=== PATIENT | female | born 1955 | race Caucasian/White ===

== ENCOUNTER 2019-05-06 11:08 | Emergency (ER) | payer MEDICARE ==
--- NOTE | 2019-05-06 11:44 | ER Document Report ---
ED Medical Screen (RME) - General Chief Complaint: High Blood Pressure Stated Complaint: BLOOD PRESSURE ISSUES Time Seen by Provider: 05/06/19 11:35 Notes: HPI: 64-year-old female with history of high blood pressure presenting for high blood pressure. States she has a mild headache. Patient states that she has been working through her physician in [place] to try and manage her blood pressure over the last 2 months. They have made several changes in her medication dosing. Patient saw a primary care provider locally today and her blood pressure systolic was greater than 200 and they referred her over to the emergency department. She denies chest pain denies shortness of breath. Denies weakness numbness tingling in the extremities. States she last had blood work done in October 2018. I have greeted and performed a rapid initial assessment of this patient. A comprehensive ED assessment and evaluation of the patient, analysis of test results and completion of the medical decision making process will be conducted by additional ED providers PHYSICAL EXAMINATION: GENERAL: Well-appearing, well-nourished and in no acute distress. HEAD: Atraumatic, normocephalic. EYES: sclera anicteric, conjunctiva are normal. ENT: Moist mucous membranes. NECK: Normal range of motion, no JVD LUNGS: Normal work of breathing, clear to auscultation HEART: 2+ radial pulses bilaterally, regular rate and rhythm ABD: limited by positioning for exam in triage. EXTREMITIES: no pitting or edema. No cyanosis. NEUROLOGICAL: No focal neurological deficits. Moves all extremities spontaneously and on command. PSYCH: Normal mood, normal affect. SKIN: Warm, Dry, normal turgor, no rashes or lesions noted. TRAVEL OUTSIDE OF THE [place] IN LAST 30 DAYS: No - Related Data Allergies/Adverse Reactions: No Known Allergies Allergy (Unverified 05/06/19 11:33) Home Medications: Metoprolol, Acebutolol Physical Exam - Vital signs Vitals: Temp Pulse Resp BP Pulse Ox 97.9 F 68 16 216/93 H 100 05/06/19 11:25 05/06/19 11:25 05/06/19 11:05/06/19 11:05/06/19 11:25 Course - Vital Signs Vital signs: Temp Pulse Resp BP Pulse Ox 97.9 F 68 16 216/93 H 100 05/06/19 11:25 05/06/19 11:25 05/06/19 11:25 05/06/19 11:25 05/06/19 11:25
[2019-05-06 12:24] LABS: ABSOLUTE BASOPHILS # (AUTO) 0.1 10^3/uL (0.0-0.2); ABSOLUTE EOSINOPHILS # (AUTO) 0.2 10^3/uL (0.0-0.6); ABSOLUTE LYMPHOCYTES (AUTO) 1.8 10^3/uL (0.5-4.7); ABSOLUTE MONOCYTES (AUTO) 0.7 10^3/uL (0.1-1.4); ABSOLUTE NEUT (AUTO) 6.7 10^3/uL (1.7-8.2); BASOPHILS % (AUTO) 0.9 % (0-2); EOSINOPHILS % (AUTO) 1.7 % (0-6); HEMATOCRIT 43.4 % (36.0-47.0); LYMPHOCYTES % (AUTO) 18.9 % (13-45); MEAN CORPUSCULAR HEMOGLOBIN 31.9 pg (27.0-33.4); MEAN CORPUSCULAR HGB CONC 34.7 g/dL (32.0-36.0); MEAN CORPUSCULAR VOLUME 92 fl (80-97); MONOCYTES % (AUTO) 7.3 % (3-13); PLATELET COUNT 216 10^3/uL (150-450); RED BLOOD COUNT 4.71 10^6/uL (3.72-5.28); RED CELL DISTRIBUTION WIDTH 12.4 % (11.5-14.0); SEGMENTED NEUTROPHILS % (AUTO) 71.2 % (42-78); TOTAL CELLS COUNTED % (AUTO) 100 %; WHITE BLOOD COUNT 9.4 10^3/uL (4.0-10.5)
--- NOTE | 2019-05-06 12:24 | RADIOLOGY REPORT (SQ) ---
EXAM DESCRIPTION: CHEST 2 VIEWS COMPLETED DATE/TIME: 05/06/2019 12:04 pm REASON FOR STUDY: High blood pressure COMPARISON: None. EXAM PARAMETERS: NUMBER OF VIEWS: two views TECHNIQUE: Digital Frontal and Lateral radiographic views of the chest acquired. RADIATION DOSE: NA LIMITATIONS: none FINDINGS: LUNGS AND PLEURA: No opacities, masses or pneumothorax. No pleural effusion. MEDIASTINUM AND HILAR STRUCTURES: No masses or contour abnormalities. HEART AND VASCULAR STRUCTURES: Heart normal size. No evidence for failure. BONES: No acute findings. HARDWARE: None in the chest. OTHER: No other significant finding. IMPRESSION: No evidence of acute cardiopulmonary process. TECHNICAL DOCUMENTATION: JOB ID: [id number] [employer] ([employer])- All Rights Reserved Reading location - IP/workstation name: [email or web address]
[2019-05-06 12:25] LABS: ALBUMIN 4.7 g/dL (3.5-5.0); ALKALINE PHOSPHATASE 84 U/L (38-126); ANION GAP 11 (5-19); ASPARTATE AMINO TRANSFERASE 32 U/L (14-36); BILIRUBIN,DIRECT 0.3 mg/dL (0.0-0.4); BILIRUBIN,TOTAL 0.7 mg/dL (0.2-1.3); BLOOD UREA NITROGEN 15 mg/dL (7-20); CALCIUM 10.3 mg/dL (8.4-10.2); CARBON DIOXIDE 28 mmol/L (22-30); CHLORIDE 101 mmol/L (98-107); GLUCOSE 99 mg/dL (75-110); POTASSIUM 4.3 mmol/L (3.6-5.0); TOTAL PROTEIN 7.9 g/dL (6.3-8.2)
[2019-05-06] MEDS ORDERED: MECLIZINE HCL 25 MG TABLET PO ONE (13:04)
[2019-05-06] MEDS ORDERED: CHLORTHALIDONE 25 MG TABLET PO ONE (13:33)
[2019-05-06] MEDS ORDERED: AMLODIPINE BESYLATE 5 MG TABLET PO ONE (13:34)
[2019-05-06 14:01] LABS: APPEARANCE,URINE CLEAR; BILIRUBIN,URINE NEGATIVE (NEGATIVE); COLOR,URINE STRAW; GLUCOSE, URINE NEGATIVE (NEGATIVE); KETONES,URINE NEGATIVE (NEGATIVE); LEUKOCYTE ESTERASE,URINE NEGATIVE (NEGATIVE); NITRITE,URINE NEGATIVE (NEGATIVE); PROTEIN,URINE NEGATIVE (NEGATIVE); URINE SPECIFIC GRAVITY 1.005; UROBILINOGEN,URINE NEGATIVE mg/dL (<2.0)
--- NOTE | 2019-05-06 15:16 | EKG REPORT ---
SEVERITY:- NORMAL ECG - SINUS RHYTHM : Confirmed by: Renetta Rendon MD 06-May-2019 15:15:33
[2019-05-06 15:17] VITALS: BP 152/69
--- NOTE | 2019-05-06 20:14 | ER Document Report ---
Entered by CAR DO SCRIBE 05/06/19 1712 Acting as scribe for:DALTON LOPEZ MD ED General - General Chief Complaint: High Blood Pressure Stated Complaint: BLOOD PRESSURE ISSUES Time Seen by Provider: 05/06/19 11:35 Information source: Patient Notes: 64 year old female presents to the ED with hypertension that she reports she has not been able to stabilize for three months. Patient visited [facility] this morning and was sent to the ED with hypertension (200/88). Patient complains of vertigo 8 days prior that kept her in bed. Patient says that vertigo is worse with getting up quickly. Patient took Dramamine and stated that it mildly helped. Patient reports that she is visiting for the winter and is to return to her home state, [place], in August. She has been in contact with her physician in her home state who has been adjusting her medications for her blood pressure. Patient reports she has been on acebutolol 400mg daily for about 4 years. She reports back in the summer she had been on hydrochlorothiazide 25 mg daily for quite some time and her doctor stopped the medication in October 2018. She does not know why it was stopped. In March when her blood pressure started running higher, her doctor added metoprolol succinate 50 mg daily. That did not seem to help the blood pressure so she added an additional 50 mg of metoprolol succinate daily. She has continued to run elevated blood pressures. She also reports that she has felt somewhat fatigued since starting the metoprolol, and that she thinks she has been gaining some weight. TRAVEL OUTSIDE OF THE [place] IN LAST 30 DAYS: No - Related Data Allergies/Adverse Reactions: No Known Allergies Allergy (Unverified 05/06/19 11:33) Home Medications: Metoprolol, Acebutolol Past Medical History - General Information source: Patient - Social History Smoking Status: Current Every Day Smoker Cigarette use (# per day): Yes - 1/2 pack per day Chew tobacco use (# tins/day): No Smoking Education Provided: No Frequency of alcohol use: Social Drug Abuse: None Occupation: Retired Lives with: Family Family History: Reviewed & Not Pertinent Patient has suicidal ideation: No Patient has homicidal ideation: No - Past Medical History Cardiac Medical History: Reports: Hx Hypertension Past Surgical History: Reports: Hx Tonsillectomy Review of Systems - Review of Systems Constitutional: No symptoms reported EENT: See HPI, Vertigo Cardiovascular: No symptoms reported Respiratory: No symptoms reported Gastrointestinal: No symptoms reported Genitourinary: No symptoms reported Female Genitourinary: No symptoms reported Musculoskeletal: No symptoms reported Skin: No symptoms reported Hematologic/Lymphatic: No symptoms reported Neurological/Psychological: See HPI, Other - Dizziness/vertigo-like symptoms -: Yes All other systems reviewed and negative Physical Exam - Vital signs Vitals: Temp Pulse Resp BP Pulse Ox 97.9 F 68 16 216/93 H 100 05/06/19 11:25 05/06/19 11:25 05/06/19 11:25 05/06/19 11:25 05/06/19 11:25 - Notes Notes: General: Alert, appears well. HEENT: Normocephalic. Atraumatic. PERRL. Extraocular movements intact. Oropharynx clear. Kevin-hallpike test is positive. Slight lateral gaze-evoked nystagmus. Neck: Supple. Non-tender. Respiratory: No respiratory distress. Clear and equal breath sounds bilaterally. Cardiovascular: Regular rate and rhythm. Abdominal: Normal Inspection. Non-tender. No distension. Normal Bowel Sounds. Back: No gross abnormalities. Extremities: Moves all four extremities. Upper extremities: Normal inspection. Normal ROM. Lower extremities: Normal inspection. There is some trace edema to the lower extremities. Normal ROM. Neurological: Normal cognition. AAOx4. Normal speech. Psychological: Normal affect. Normal Mood. Skin: Warm. Dry. Normal color. Course - Re-evaluation Re-evalutation: 05/06/19 15:18 The patient was given meclizine 50 mg, amlodipine 5 mg, and chlorthalidone 25 mg 1:30 PM. At this time the dizziness she was feeling is considerably better and she notices that she is able to lay down on her right side now. She states previously when she would lay down at night on the right side it made her quite dizzy. Her blood pressure is now down to 152/69. I have advised her that if her blood pressure continues to fall and drops down to 130 systolic or less, she should reduce her metoprolol by half to what her previous dose had been. She will follow-up with [facility] this week for recheck, to determine what the best combination of medications might be to control her blood pressure and reduce the fatigue she has been experiencing from the double beta-juvenal dosing she is on. - Vital Signs Vital signs: Temp Pulse Resp BP Pulse Ox 98.4 F 68 13 152/69 H 100 05/06/19 15:31 05/06/19 11:25 05/06/19 15:01 05/06/19 15:01 05/06/19 15:01 - Laboratory Result Diagrams: 05/06/19 11:59 05/06/19 11:59 Laboratory results interpreted by me: 05/06/19 11:59 Calcium 10.3 H Discharge - Discharge Clinical Impression: Vertigo High blood pressure Qualifiers: Hypertension type: essential hypertension Qualified Code(s): I10 - Essential (primary) hypertension Condition: Stable Disposition: HOME, SELF-CARE Additional Instructions: Vertigo: You have been experiencing episodes of vertigo -- a whirling dizziness which may be accompanied by nausea and vomiting or staggering. Vertigo is often caused by an irritation of the inner ear, in which case it is called labyrinthitis. It can also be a symptom of a degenerating inner ear, nerve damage, or brain injury. Your physician has evaluated you to determine whether any further testing is necessary. Vertigo is often treated with dramamine or meclizine. These medications are helpful, but stronger medication may be needed if you are vomiting. Rest in bed. You should not drive or operate machinery until completely better. It may take one to three weeks for recovery. If there are new symptoms, such as decreased hearing or vision, severe headache, weakness or faintness, or confusion, call the physician. High Blood Pressure: Some simple things you can do to help are: If you have blood pressure medicine but aren't using it regularly, start taking it again. Get some aerobic exercise for at least 20 minutes on a daily basis. (See your doctor before beginning a new exercise program.) Eat a low-fat diet. Lose excess weight. Avoid salty foods and avoid adding salt to any of the foods you eat. Avoid diet pills, decongestants, "energizing" herbs, and other medicines that elevate blood pressure. If left poorly controlled, hypertension greatly enhances your risk for developing heart disease and strokes. Please don't ignore this problem. Take the Antivert as prescribed for dizziness. Start the chlorthalidone and amlodipine tomorrow. If you find that your blood pressure drops to a systolic of 130 or less, then reduce the metoprolol dose by half. Be sure to drink plenty fluids and get plenty of rest. Follow-up with your new primary care provider later this week to review your blood pressure readings and your new medications and doses. Take copies of the lab work, EKG, and chest x-ray report with you. RETURN TO THE EMERGENCY ROOM IF ANY NEW OR WORSENING SYMPTOMS. Prescriptions: Meclizine HCl [Antivert 25 mg Tablet] 25 mg PO TID PRN #30 tablet PRN Reason: Chlorthalidone [Hygroton 25 mg Tablet] 25 mg PO DAILY #30 tablet Amlodipine Besylate [Norvasc 5 mg Tablet] 5 mg PO DAILY #30 tablet Scribe Attestation: 05/06/19 20:21 I personally performed the services described in the documentation, reviewed and edited the documentation which was dictated to the scribe in my presence, and it accurately records my words and actions. I personally performed the services described in the documentation, reviewed and edited the documentation which was dictated to the scribe in my presence, and it accurately records my words and actions.
== END 2019-05-06 15:34 | disposition home or self-care (01) ==
LOC: ER 11:08
DX: I10 Essential (primary) hypertension (principal); Z79.899 Other long term (current) drug therapy; R42 Dizziness and giddiness; H55.00 Unspecified nystagmus; R60.0 Localized edema; R53.83 Other fatigue; F17.210 Nicotine dependence, cigarettes, uncomplicated
CPT/HCPCS: 93005; 99284; 36415; 85025; 80053; 81001; 84484; 71046; 93010; A9270 ×3